=== PATIENT | female | born 1990 | race Caucasian/White ===

== ENCOUNTER 2019-08-07 03:35 | Inpatient (IN) ==
[2019-08-07] MEDS ORDERED: Ketorolac 30 MG/ML VIAL IVP ONE ×2 (04:43→11:44)
[2019-08-07] MEDS ORDERED: Ondansetron ODT 4 MG TAB.RAPDIS SL ONE (04:44)
[2019-08-07 05:04] LABS: Bilirubin,Urine Negative (Negative); Blood,Urine Negative (Negative); Clarity,Urine Clear (Clear); Color,Urine Yellow (Yellow); Glucose,Urine (UA) Normal (Normal); Ketones,Urine Negative (Negative); Leukocyte Esterase,Urine Negative (Negative); Nitrite,Urine Negative (Negative); Protein,Urine Negative (Neg-Trace); Specific Gravity,Urine 1.014 (1.010-1.025); Urobilinogen,Urine Normal (Normal)
[2019-08-07 05:07] LABS: Basophils % 0.3 %; Eosinophils # 0.1 K/mcL (0.0-0.6); Eosinophils % 0.7 %; Hematocrit 36.8 % (35.3-44.9); Hemoglobin 12.8 g/dL (11.5-15.4); Immature Granulocytes % 0.3 % (0-4); Lymphocytes # 1.8 K/mcL (0.6-4.6); Lymphocytes % 12.8 %; Mean Corpuscular HGB Conc 34.8 g/dL (31.6-35.5); Mean Corpuscular Hemoglobin 31.9 pg (28.0-33.3); Mean Corpuscular Volume 91.8 fL (83.0-100.0); Monocytes # 0.9 K/mcL (0.0-1.3); Monocytes % 6.1 %; Neutrophils # 11.5 K/mcL (1.6-8.9); Platelet Count 249 K/mcL (140-400); Red Blood Count 4.01 M/mcL (3.82-4.97); Red Cell Distribution Width 11.9 % (11.5-14.5); Segmented Neutrophils % 79.8 %; White Blood Count 14.4 K/mcL (4.3-11.1)
[2019-08-07 05:27] LABS: Alanine Aminotransferase 8 Units/L (7-52); Albumin 4.4 g/dL (3.5-5.7); Albumin/Globulin Ratio 1.6 (1.1-2.2); Alkaline Phosphatase 49 Units/L (34-104); Aspartate Amino Transferase 12 Units/L (13-39); BUN/Creatinine Ratio 14 (6-26); Bilirubin,Direct 0.1 mg/dL (0.0-0.2); Bilirubin,Indirect 0.2 mg/dL (0.0-1.0); Bilirubin,Total 0.3 mg/dL (0.3-1.0); Blood Urea Nitrogen 10 mg/dL (6-20); Calcium 9.5 mg/dL (8.6-10.3); Carbon Dioxide 23 mEq/L (23-29); Chloride 108 mEq/L (98-107); Globulin 2.8 g/dL (2.4-3.5); Glucose 111 mg/dL (70-105); Lipase 8 Units/L (11-82); Osmolality,Calculated 292 (280-300); Potassium 3.2 mEq/L (3.5-5.1); Sodium 141 mEq/L (136-145); Total Protein 7.2 g/dL (6.4-8.9); eGFR For African Americans > 60 (> 60); eGFR For Non-African Americans > 60 (> 60)
[2019-08-07] MEDS ORDERED: *HR* FentaNYL (PF) 100 MCG/2 ML VIAL IVP ONE (06:21)
[2019-08-07] MEDS ORDERED: 0.9 % Sodium Chloride 1,000 ML IVC ONE (06:25)
[2019-08-07 06:40] LABS: Prothrombin Time 10.9 Seconds (9.4-12.1)
[2019-08-07 06:43] LABS: Activated Partial Thrombo Time 27.3 Seconds (26.0-36.0)
[2019-08-07] MEDS ORDERED: Ondansetron 4 MG/2 ML VIAL ONE (08:52)
[2019-08-07] MEDS ORDERED: *HR* Rocuronium Bromide 50 MG/5 ML VIAL ONE (08:52)
[2019-08-07] MEDS ORDERED: *HR* FentaNYL (PF) 100 MCG/2 ML VIAL ONE (08:52)
[2019-08-07] MEDS ORDERED: Lidocaine -MPF 2% 2 ML VIAL ONE (08:52)
[2019-08-07] MEDS ORDERED: *HR* Midazolam HCl 2 MG/2 ML VIAL ONE (08:52)
[2019-08-07] MEDS ORDERED: *HR* Succinylcholine 200 MG/10 ML VIAL IVP ONE (08:52)
[2019-08-07] MEDS ORDERED: Dexamethasone 4 MG/ML VIAL ONE (08:52)
[2019-08-07] MEDS ORDERED: *HR* Propofol 200 MG/20 ML VIAL IVP ONE (08:52)
[2019-08-07] MEDS ORDERED: Lidocaine -MPF 4% 5 ML AMPUL ONE (08:52)
[2019-08-07] MEDS ORDERED: *HR* PHENYLEPHRINE 1,000 MCG/10 ML SYRINGE IVP ONE (08:53)
[2019-08-07] MEDS ORDERED: Albuterol Neb 1.25 MG/3 ML VIAL IH ONE (08:56)
[2019-08-07] MEDS ORDERED: Albuterol 2.5 MG/3 ML NEBULIZER ONE (08:57)
[2019-08-07] MEDS ORDERED: Albuterol 2.5 MG/3 ML NEBULIZER IH ONE (08:58)
[2019-08-07] MEDS ORDERED: Bupivacaine/EPI 1:200k 0.5%PF 30 ML VIAL ONE (09:18)
[2019-08-07] MEDS ORDERED: *HR* HYDROMORPHONE 2 MG/ML VIAL ONE (10:04)
[2019-08-07] MEDS ORDERED: Metoclopramide 10 MG/2 ML VIAL IVP PRN (12:01)
[2019-08-07] MEDS ORDERED: *HR* OxyCODONE/APAP 5/325 TABLET PO PRN (12:01)
[2019-08-07] MEDS ORDERED: Sennosides 8.6 MG TABLET PO PRN (12:01)
[2019-08-07] MEDS ORDERED: Simethicone 80 MG TAB.CHEW PO PRN (12:01)
[2019-08-07] MEDS ORDERED: Ibuprofen 600 MG TABLET PO PRN (12:01)
[2019-08-07] MEDS ORDERED: Ondansetron 4 MG/2 ML VIAL IVP PRN (12:01)
[2019-08-07 16:10] VITALS: BP 115/75
[2019-08-07 18:49] LABS: Basophils % 0.1 %; Hematocrit 32.6 % (35.3-44.9); Hemoglobin 11.3 g/dL (11.5-15.4); Immature Granulocytes % 0.3 % (0-4); Lymphocytes # 0.5 K/mcL (0.6-4.6); Lymphocytes % 5.8 %; Mean Corpuscular HGB Conc 34.7 g/dL (31.6-35.5); Mean Corpuscular Hemoglobin 32.2 pg (28.0-33.3); Mean Corpuscular Volume 92.9 fL (83.0-100.0); Mean Platelet Volume 10.3 fL (9.4-12.4); Monocytes # 0.4 K/mcL (0.0-1.3); Monocytes % 3.7 %; Neutrophils # 8.4 K/mcL (1.6-8.9); Platelet Count 202 K/mcL (140-400); Red Blood Count 3.51 M/mcL (3.82-4.97); Red Cell Distribution Width 12.1 % (11.5-14.5); Segmented Neutrophils % 90.1 %; White Blood Count 9.3 K/mcL (4.3-11.1)
[2019-08-07] MEDS ORDERED: lamoTRIgine 25 MG TABLET PO SCH (21:00)
[2019-08-08] MEDS ORDERED: Prenatal Vit/FA 1 EACH TABLET PO SCH (09:00)
== END 2019-08-07 19:25 | disposition home or self-care (01) | DRG 513 ==
LOC: EMEROOARM 03:35 → 1NENUOBS 08:24 → 1NENUPED 09:14 → 1NENUOBS 14:58
PROVIDERS: ADMIT Obstetrics & Gynecology; ATTEND Obstetrics & Gynecology

== ENCOUNTER 2021-04-08 09:47 | Inpatient (IN) ==
[2021-04-08] MEDS ORDERED: Lidocaine 1% 20 ML MDV ID PRN (10:08)
[2021-04-08] MEDS ORDERED: Metoclopramide 10 MG/2 ML VIAL IVP PRN (10:08)
[2021-04-08] MEDS ORDERED: Ondansetron 4 MG/2 ML VIAL IVP PRN (10:08)
[2021-04-08] MEDS ORDERED: Famotidine 20 MG/2 ML VIAL IVP PRN (10:08)
[2021-04-08] MEDS ORDERED: *HR* Nalbuphine 10 MG/ML AMPUL IV PRN (10:08)
[2021-04-08] MEDS ORDERED: Naloxone 0.4 MG/ML INJ IVP PRN (10:08)
[2021-04-08] MEDS ORDERED: Azithromycin 500 MG in 0.9 % Sodium Chloride 250 ML IVPB PRN (10:08)
[2021-04-08] MEDS ORDERED: miSOPROStoL 25 MCG TABLET PO PRN (10:43)
[2021-04-08] MEDS ORDERED: Oxytocin 20 units/ LR 1000 mL 20 UNIT/1,000 ML BAG IVC SCH (10:45)
[2021-04-08 11:00] LABS: Basophils % 0.1 %; Eosinophils # 0.1 K/mcL (0.0-0.6); Eosinophils % 1.5 %; Hematocrit 28.8 % (35.3-44.9); Hemoglobin 9.6 g/dL (11.5-15.4); Immature Granulocytes % 0.6 % (0-4); Lymphocytes # 0.9 K/mcL (0.6-4.6); Lymphocytes % 12.8 %; Mean Corpuscular HGB Conc 33.3 g/dL (31.6-35.5); Mean Corpuscular Hemoglobin 30.3 pg (28.0-33.3); Mean Corpuscular Volume 90.9 fL (83.0-100.0); Mean Platelet Volume 10.8 fL (9.4-12.4); Monocytes # 0.5 K/mcL (0.0-1.3); Monocytes % 7.7 %; Neutrophils # 5.3 K/mcL (1.6-8.9); Platelet Count 165 K/mcL (140-400); Red Blood Count 3.17 M/mcL (3.82-4.97); Red Cell Distribution Width 12.2 % (11.5-14.5); Segmented Neutrophils % 77.3 %; White Blood Count 6.9 K/mcL (4.3-11.1)
[2021-04-08 11:19] LABS: Amphetamine Screen,Urine Negative ng/mL (Cutoff=1000); Barbiturate Screen,Urine Negative ng/mL (Cutoff=200); Benzodiazepines Screen,Urine Negative ng/mL (Cutoff=200); Cannabinoid Screen,Urine Negative ng/mL (Cutoff = 50); Cocaine Screen,Urine Negative ng/mL (Cutoff= 300); Opiate Screen,Urine Negative ng/mL (Cutoff=300); Phencyclidine Screen,Urine Negative ng/mL (Cutoff=25)
[2021-04-08 11:40] LABS: Influenza A PCR Negative (Negative); Influenza B PCR Negative (Negative); Resp. Syncytial Virus PCR Negative (Negative)
[2021-04-08 11:41] LABS: SARS-CoV-2 by PCR (In House) Negative (Negative)
[2021-04-08] MEDS ORDERED: Methylergonovine 0.2 MG/ML AMPUL IM ONE (12:21)
[2021-04-08] MEDS ORDERED: Ringers Solution, Lactated 1,000 ML ONE (15:30)
[2021-04-08] MEDS ORDERED: Epidural Premix (fent/bupiv) 110 ML EP ONE (18:52)
[2021-04-08] MEDS ORDERED: *HR* Phenylephrine 10 MG/ML VIAL ONE (18:53)
[2021-04-08] MEDS ORDERED: EPHEDrine 50 MG/ML VIAL IVP PRN (20:20)
[2021-04-08] MEDS ORDERED: Acetaminophen 325 MG TABLET PO ONE (20:28)
[2021-04-08] MEDS ORDERED: Epidural Premix (fent/bupiv) 110 ML EP SCH (20:30)
[2021-04-09] MEDS ORDERED: Sennosides 8.6 MG TABLET PO PRN (01:41)
[2021-04-09] MEDS ORDERED: Lanolin 7 G OINT...G. TP PRN (01:41)
[2021-04-09] MEDS ORDERED: Oxytocin 20 units/ LR 1000 mL 20 UNIT/1,000 ML BAG IVC SCH (01:41)
[2021-04-09] MEDS ORDERED: Measles/Mumps/Rubella Vacc 0.5 ML VIAL SQ PRN (01:41)
[2021-04-09] MEDS ORDERED: Rho Immune Globulin 1,500 UNIT SYRINGE IM PRN (01:41)
[2021-04-09] MEDS ORDERED: Oxytocin 20 units/ LR 1000 mL 20 UNIT/1,000 ML BAG IVC ONE (01:41)
[2021-04-09] MEDS ORDERED: Benzocaine/Menthol 56 GM AEROSOL SPRAY TP PRN (01:41)
[2021-04-09] MEDS: Acetaminophen 325 MG TABLET PO PRN ×4 (02:16→20:08)
[2021-04-09] MEDS: Ibuprofen 600 MG TABLET PO PRN ×4 (02:16→20:09)
[2021-04-09] MEDS: Prenatal Vit/FA 1 EACH TABLET PO SCH (08:22)
[2021-04-09 10:37] LABS: Basophils % 0.1 %; Eosinophils # 0.1 K/mcL (0.0-0.6); Eosinophils % 1.1 %; Hematocrit 21.1 % (35.3-44.9); Immature Granulocytes % 0.4 % (0-4); Lymphocytes % 10.6 %; Mean Corpuscular HGB Conc 32.7 g/dL (31.6-35.5); Mean Corpuscular Hemoglobin 30.3 pg (28.0-33.3); Mean Corpuscular Volume 92.5 fL (83.0-100.0); Monocytes # 0.7 K/mcL (0.0-1.3); Monocytes % 7.2 %; Neutrophils # 7.7 K/mcL (1.6-8.9); Platelet Count 138 K/mcL (140-400); Red Blood Count 2.28 M/mcL (3.82-4.97); Red Cell Distribution Width 12.3 % (11.5-14.5); Segmented Neutrophils % 80.6 %; White Blood Count 9.6 K/mcL (4.3-11.1)
[2021-04-09 10:39] LABS: Hemoglobin 6.9 g/dL (11.5-15.4)
[2021-04-09 20:54] VITALS: PULSE 86; O2SAT 97
[2021-04-10] MEDS: Prenatal Vit/FA 1 EACH TABLET PO SCH (07:37)
[2021-04-10 08:03] VITALS: BP 127/79; TEMP 98.2
[2021-04-10 10:01] LABS: White Blood Count 7.9 K/mcL (4.3-11.1)
[2021-04-10 10:02] LABS: Basophils % 0.3 %; Eosinophils # 0.2 K/mcL (0.0-0.6); Hematocrit 20.9 % (35.3-44.9); Hemoglobin 6.7 g/dL (11.5-15.4); Immature Granulocytes % 0.6 % (0-4); Lymphocytes # 1.1 K/mcL (0.6-4.6); Lymphocytes % 14.1 %; Mean Corpuscular HGB Conc 32.1 g/dL (31.6-35.5); Mean Corpuscular Hemoglobin 30.2 pg (28.0-33.3); Mean Corpuscular Volume 94.1 fL (83.0-100.0); Mean Platelet Volume 10.4 fL (9.4-12.4); Monocytes # 0.5 K/mcL (0.0-1.3); Monocytes % 6.2 %; Platelet Count 129 K/mcL (140-400); Red Blood Count 2.22 M/mcL (3.82-4.97); Red Cell Distribution Width 12.4 % (11.5-14.5); Segmented Neutrophils % 76.8 %
== END 2021-04-10 12:22 | disposition home or self-care (01) | DRG 560 ==
LOC: 1NENULAB 09:47 → 1NENUOBS 04-09 01:43
PROVIDERS: ADMIT Student in an Organized Health Care Education/Training Program; ATTEND Student in an Organized Health Care Education/Training Program